=== PATIENT | female | born 1930 | race Caucasian/White ===

== ENCOUNTER 2017-01-13 13:07 | Outpatient (CLI) | payer MEDICARE, BC | END 2017-01-13 23:59 | DX: I10 Essential (primary) hypertension (principal) ==

== ENCOUNTER 2017-05-07 08:23 | Day surgery (SDC) | payer MEDICARE, BC ==
[2017-05-07] MEDS ORDERED: PHENYLEPHRINE 2.5% OPHTH 2 ML DROPS ONE (08:48)
[2017-05-07] MEDS ORDERED: LACTATED RINGERS 500 ML IV ONE (08:51)
[2017-05-07] MEDS ORDERED: CYCLOPENTOLATE 1% OPHTH DROPS 2 ML OPTH ONE (09:05)
[2017-05-07] MEDS ORDERED: PHENYLEPHRINE 2.5% OPHTH 2 ML DROPS OPTH ONE (09:05)
[2017-05-07] MEDS ORDERED: KETOROLAC 0.45% OPHTH DROPS OPTH ONE (09:05)
[2017-05-07] MEDS ORDERED: PROPARACAINE 0.5% OPHTH DROPS 15 ML OPTH ONE ×2 (09:05→09:41)
[2017-05-07] MEDS ORDERED: BRIMONIDINE 0.2% OPHTH DROPS 5 ML OPTH ONE (09:40)
[2017-05-07] MEDS ORDERED: EPINEPHrine 1 MG/ML AMP IVP ONE (09:40)
[2017-05-07] MEDS ORDERED: CHONDR SULF/HYALURONATE SYRINGE IO ONE (09:41)
[2017-05-07] MEDS ORDERED: TRIAMCIN/MOXIFLOX/VANCO 1 ML VIAL IO ONE ×2 (09:41)
[2017-05-07] MEDS ORDERED: BSS/LIDOCAINE/EPINEPHRINE 1 ML SYRINGE IO ONE (09:41)
[2017-05-07] MEDS ORDERED: TIMOLOL 0.5% OPHTH DROPS OPTH ONE (09:41)
[2017-05-07] MEDS ORDERED: MIDAZOLAM 2 MG/2 ML VIAL IVP ONE (09:58)
[2017-05-07 10:26] VITALS: BP 128/70
--- NOTE | 2017-05-07 11:23 | OPERATIVE REPORT ---
DATE OF SURGERY: 05/07/2017 00:00:00 PREOPERATIVE DIAGNOSIS: Visually significant cataract, left eye. Cataract surgery was performed on the right eye about 15 years ago. POSTOPERATIVE DIAGNOSIS: Visually significant cataract, left eye. Cataract surgery was performed on the right eye about 15 years ago. NAME OF PROCEDURE: Phacoemulsification, posterior chamber intraocular lens implant, left eye. SURGEON: Timothy Easton M.D. ANESTHESIA: Monitored anesthesia care. COMPLICATIONS: None. OPERATIVE INDICATIONS: This is an 86-year-old woman with progressive vision loss in the left eye due to 3-4+ cortical and 2-3+ nuclear cataract. Best corrected visual acuity was 20/40 with glare to hand-motion vision in the left eye. Indications for surgery were overall decrease in vision, difficulty seeing words, closed caption game scores on TV, difficulty driving in low light or at night, difficulty driving at night because of the headlights from other vehicles or street lights. She was consented at length concerning the risks and benefits of cataract surgery, after which she expressed the desire to proceed with surgery. OPERATIVE PROCEDURE: The patient was taken into OR #2 and placed under monitored anesthesia care. A surgical time-out was conducted, confirming correct patient, correct procedure, and correct surgical site. She was given topical anesthesia and then prepped and draped in the usual sterile fashion. The eye was entered at the 6 and 3 o'clock positions. Intracameral Shugarcaine was injected into the anterior chamber followed by Viscoat. A continuous tear curvilinear capsulorrhexis was performed. The nucleus was hydrodissected and phacoemulsified. The cortex was evacuated using automated infusion/aspiration. Provisc was injected in the capsular bag and a 22.0 diopter intraocular lens was inserted into the bag. Approximately 0.8 mL of a mixture of triamcinolone, moxifloxacin, and vancomycin was injected subconjunctivally in the superior quadrant for infection and inflammation prophylaxis. I/A was used to evacuate the viscoelastic materials. The eye was inflated to physiologic pressure using balanced salt solution and found to be watertight. The patient was taken from the operating room in good condition and given postoperative instructions. JOB #: [id number] [facility] JOB #:[id number] [facility]
== END 2017-05-07 08:24 | disposition home or self-care (01) ==
LOC: SDS 08:23
PROVIDERS: ATTEND Ophthalmology
PROC: 08RK3JZ Replacement of Left Lens with Synthetic Substitute, Percutaneous Approach (ICD-10-PCS; principal; 2017-05-07 09:30)
DX: H25.812 Combined forms of age-related cataract, left eye (principal); I10 Essential (primary) hypertension; J45.909 Unspecified asthma, uncomplicated; Z87.891 Personal history of nicotine dependence; I25.10 Atherosclerotic heart disease of native coronary artery without angina pectoris; R01.1 Cardiac murmur, unspecified
CPT/HCPCS: 66984; A9270; V2632